=== PATIENT | female | born 1985 | race Caucasian/White ===

== ENCOUNTER 2024-06-14 23:08 | Emergency (ER) | payer MEDICAID ==
[~2024-06-14] VITALS: Ht 160 cm; Wt 78.5 kg
[2024-06-14 23:15] VITALS: BP_SYST 118; PULSE 91; RESP 18; TEMP 98.2; O2SAT 96
[2024-06-15 01:25] LABS: BILIRUBIN,URINE 2+ (NEGATIVE); COLOR,URINE YELLOW (YELLOW); GLUCOSE,URINE NEGATIVE (NEGATIVE); KETONES,URINE 3+ (NEGATIVE); NITRITE, URINE NEGATIVE (NEGATIVE); PROTEIN URINE TRACE (NEGATIVE)
[2024-06-15 01:33] LABS: BASOPHILS # (AUTO) 0.1 K/uL (0.0-0.2); EOSINOPHILS # (AUTO) 0.1 K/uL (0.0-0.4); EOSINOPHILS % (AUTO) 1.1 % (0.0-4.0); HEMATOCRIT 38.2 % (36-48); LYMPHOCYTES # (AUTO) 1.4 K/uL (1.0-5.5); LYMPHOCYTES % (AUTO) 13.7 % (20.5-51.5); MEAN CORPUSCULAR HEMOGLOBIN 31 pg (27-31); MEAN CORPUSCULAR HGB CONC 34 % (32-36); MEAN CORPUSCULAR VOLUME 92 fL (79.0-98.0); MONOCYTES # (AUTO) 0.6 K/uL (0.0-1.0); MONOCYTES % (AUTO) 5.5 % (1.7-9.3); NEUTROPHILS # (AUTO) 8.1 K/uL (1.8-7.7); NEUTROPHILS % (AUTO) 78.7 % (40.0-70.0); PLATELET COUNT (AUTO) 406 K/uL (130-430); RED BLOOD CELL COUNT(AUTO) 4.18 MIL/uL (4.2-6.2); WHITE BLOOD COUNT (AUTO) 10.4 K/uL (4.8-10.8)
[2024-06-15 01:35] LABS: BLOOD, URINE 1+ (NEGATIVE); CLARITY/URINE SLIGHTLY CLOUDY (CLEAR)
[2024-06-15 01:37] LABS: LEUKOCYTE ESTERASE ,URINE 1+ (NEGATIVE)
[2024-06-15 01:39] LABS: BACTERIA,URINE FEW /HPF (None Seen); WBC,URINE 20-50 /HPF (0-3)
[2024-06-15] MEDS: OLANZapine 5 MG TAB.RAPDIS PO ONE ×2 (01:54→01:55)
[2024-06-15 01:59] LABS: BARBITURATE, URINE NEGATIVE (NEG <=200); BENZODIAZEPINE, URINE NEGATIVE (NEG <=150); CANNABINOID, URINE POSITIVE (NEG <=50); COCAINE, URINE NEGATIVE (NEG <=150); METHAMPHETAMINES SCREEN,URINE NEGATIVE (NEG <=500); OPIATE, URINE NEGATIVE (NEG <=100); PHENCYCLIDINE SCREEN,URINE NEGATIVE (NEG <=25); UR TRICYCLIC ANTIDEPRESSANTS NEGATIVE (NEG <=300); URINE AMPHETAMINE NEGATIVE (NEG <=500); URINE METHADONE NEGATIVE (NEG <=200); URINE OXYCODONE SCREEN NEGATIVE (NEG <=100)
[2024-06-15] MEDS: cephALEXin 500 MG CAPSULE PO SCH (02:02)
[2024-06-15 02:25] LABS: ALANINE AMINOTRANSFERASE 20 U/L (12-78); ALBUMIN 3.8 g/dL (3.4-4.8); ANION GAP 11 (5-15); ASPARTATE AMINOTRANSFERASE 10 U/L (10-37); CALCIUM 8.5 mg/dL (8.4-11.0); CARBON DIOXIDE 26 mmol/L (23-29); CHLORIDE 98 mmol/L (98-107); CREATININE 0.76 mg/dL (0.55-1.30); GFR AFRICAN AMERICAN 110 mL/min (>90); GFR NON AFRICAN-AMERICAN 91 mL/min (>90); GLUCOSE 96 mg/dL (74-106); SODIUM SERUM 135 mmol/L (136-145); TOTAL PROTEIN, SERUM 8.1 g/dL (6.4-8.3); UREA NITROGEN, BLOOD 15 mg/dL (8-21)
[2024-06-15 02:27] LABS: ACETAMINOPHEN < 1 ug/mL (1-30); BILIRUBIN,DIRECT 0.2 mg/dL (0.0-0.3); SALICYLATE 3 mg/dL (3-30)
[2024-06-15 02:28] LABS: ALCOHOL, BLOOD < 3 mg/dL (<10)
[2024-06-15] MEDS: POTASSIUM CHLORIDE 20 MEQ/PKT PACKET PO ONE (06:57)
[2024-06-15] MEDS: OLANZapine 10 MG TAB.RAPDIS ONE (07:30)
[2024-06-15] MEDS: SERTRALINE HCL 50 MG TABLET PO SCH (11:10)
[2024-06-15] MEDS: OLANZapine 5 MG TAB.RAPDIS PO SCH (11:11)
[2024-06-15 19:18] VITALS: BP_SYST 124; PULSE 78; RESP 18; TEMP 97.6; O2SAT 98
== END 2024-06-15 18:30 ==
LOC: SED 23:08
DX: R46.2 Strange and inexplicable behavior (principal); N39.0 Urinary tract infection, site not specified; Z79.899 Other long term (current) drug therapy; Z20.822 Contact with and (suspected) exposure to COVID-19
CPT/HCPCS: 99285; 87426; 80307; 80076; 80048; 85025; 87086; 36415; 81025; 81001; 81000; 81015; G0482; G0480; G0481